=== PATIENT | male | born 1960 | race Caucasian/White ===

== ENCOUNTER 2024-01-22 09:48 | Outpatient (REF) | payer OTHER, SELFPAY | END 2024-01-22 09:49 | disposition home or self-care (01) | LOC: HO.HOSX 09:48 | PROVIDERS: PCP Nurse Practitioner Adult Health; Visit Provider Physician Assistant | DX: M25.561 Pain in right knee (principal); M41.20 Other idiopathic scoliosis, site unspecified | CPT/HCPCS: 72110; 73562; 99202 ==

== ENCOUNTER 2024-01-22 09:48 | Outpatient (AMB) | payer OTHER, SELFPAY ==
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
== END 2024-01-22 10:48 | disposition home or self-care (01) ==
PROVIDERS: PCP Nurse Practitioner Adult Health; Referring Provider Nurse Practitioner Adult Health; Supervising Provider Nurse Practitioner Adult Health; Visit Provider Physician Assistant
DX: M25.561 Pain in right knee (principal); M41.20 Other idiopathic scoliosis, site unspecified
CPT/HCPCS: 99204

== ENCOUNTER → 2024-01-22 10:39 | Outpatient (BNV) | payer OTHER, SELFPAY | PROVIDERS: PCP Nurse Practitioner Adult Health; Visit Provider Radiology Diagnostic Radiology | DX: M17.11 Unilateral primary osteoarthritis, right knee (principal) | CPT/HCPCS: 73562 ==

== ENCOUNTER 2024-02-14 10:07 | Outpatient (AMB) | payer OTHER, SELFPAY ==
--- NOTE | 2024-02-14 10:11 | MHC.OFFVIS ---
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 The patient states that he has been seen by another physician for his left wrist pain. He was told at that time that he might have ?gout?. The patient does not have a antenna specialist. He states that he is due to undergo blood work to further evaluate him for gout versus ?possible Lyme disease?. He has also been seen by ANTHONY Jean from our neurosurgery department here at [facility] for low back pain which radiates into his right leg. Allergies No Known Allergies Allergy (Verified 02/14/24 10:16) Physical Exam Const Other: Well-nourished well-developed very friendly male awake alert and oriented x3 in no acute distress Extrem Other: Right knee examination shows a mild effusion, palpable crepitus with range of motion, pain with range of motion, no instability Results Reviewed Results Reviewed: X-rays of the patient's right knee show joint space narrowing, subchondral sclerosis, calcifications consistent with possible gouty crystals Assessment & Plan Assessment & Plan (1) Gout: Code(s): M10.9 - Gout, unspecified Category: Medical (2) Right knee pain: Code(s): M25.561 - Pain in right knee Category: Medical Plan Mr. Matta presents with right knee pain due to degenerative joint disease as well as possible gouty flare up. I had a lengthy discussion with the patient regarding the treatment options. At this point the patient's knee pain is tolerable to him. I do feel that the majority of the patient's right lower extremity symptoms are from his right knee and not his lumbar spine pathology. I will try to arrange for the patient to have a follow-up appointment with Rheumatology. Once he has that appointment he will follow up with me to further discuss possible total knee replacement surgery. Feel free to call me at any time should questions regarding his orthopedic management arise. Thank you very much for asking me to see this very friendly gentleman. I spent 22 minutes in reviewing the patient's records and imaging studies, seeing the patient and documenting in the medical record. Orders: Referrals Rheumatology Referral M10.9 - Gout, unspecified Coding Level of Care Code New Pt Level 3 (68191) Complex EM visit Add On G2211 Diagnoses Gout M10.9 Right knee pain M25.561
== END 2024-02-14 10:36 | disposition home or self-care (01) ==
PROVIDERS: PCP Nurse Practitioner Adult Health; Visit Provider Orthopaedic Surgery
DX: M17.11 Unilateral primary osteoarthritis, right knee (principal)
CPT/HCPCS: 99203; G2211

== ENCOUNTER → 2024-02-14 10:07 | Outpatient (BNVA) | payer OTHER, SELFPAY | PROVIDERS: PCP Nurse Practitioner Adult Health; Visit Provider Orthopaedic Surgery | DX: M25.561 Pain in right knee (principal); M10.9 Gout, unspecified | CPT/HCPCS: 99202 ==

== ENCOUNTER 2024-02-16 11:00 | Outpatient (AMB) | payer OTHER, SELFPAY ==
--- NOTE | 2024-02-16 11:03 | HO.SPINEOV ---
Intake Visit Reasons: Follow up after Ortho appt Intake Note: Mr. Matta is here to F/u after ortho appointment. Towing Pilot Required: No Allergies No Known Allergies Allergy (Verified 02/16/24 11:29) Assessment & Plan Assessment & Plan (1) Gout: Code(s): M10.9 - Gout, unspecified Category: Medical Plan MR Matta returns today to discuss his visit with Dr. Ontiveros. It looks like from his note that he believes this is likely arthritic as well. The patient has multiple swollen joints in his right leg, now is ankle is also bothering him and is swollen. The knee feels slightly better now and is less swollen. He reports a history of having gout in his left wrist at 1 point years ago. None of this fits with lumbar radiculopathy and I agree with Dr. Ontiveros that he is best suited to see a box turner. Total amount of time spent in this visit was 20 minutes in discussion of symptoms, lumbar MRI imaging and orthopedic results and subsequent plan of care Blake Mata MD,PhD [facility] Coding Level of Care Code Est Pt Level 3 (72870) Diagnoses Gout M10.9
== END 2024-02-16 12:02 | disposition home or self-care (01) ==
PROVIDERS: PCP Nurse Practitioner Adult Health; Visit Provider Physician Assistant
DX: M10.9 Gout, unspecified (principal)
CPT/HCPCS: 99213

== ENCOUNTER → 2024-02-16 11:00 | Outpatient (BNVA) | payer OTHER, SELFPAY | PROVIDERS: PCP Nurse Practitioner Adult Health; Visit Provider Physician Assistant | DX: M10.9 Gout, unspecified (principal) | CPT/HCPCS: 99212 ==

== ENCOUNTER 2024-05-10 10:36 | Outpatient (AMB) | payer OTHER, SELFPAY ==
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
[2024-05-10 10:48] VITALS: BP 112/64; PULSE 73; RESP 18; O2SAT 98; BMI 25.2
== END 2024-05-10 11:32 | disposition home or self-care (01) ==
PROVIDERS: PCP Nurse Practitioner Adult Health; Visit Provider Student in an Organized Health Care Education/Training Program
DX: M11.9 Crystal arthropathy, unspecified (principal)
CPT/HCPCS: 99204; G2211

== ENCOUNTER 2024-05-10 10:36 | Outpatient (REF) | payer OTHER, SELFPAY ==
--- NOTE | ~2024-05-10 | XR_ITS ---
CLINICAL HISTORY: M10.9 - Gout, unspecified 4 view left hand Comparison: None Findings: No evidence of acute fracture. Mild deformity of the 5th metatarsal shaft due to old injury. Small well corticated ossified focus projecting dorsal to the proximal carpus due to old injury +/-intra-articular body. Single scapholunate screw. Small erosion in the articular surface of the radial styloid in the vicinity of the head of the scapholunate screw. Otherwise no evidence of hardware complication. Background of more diffuse , mild irregularity of the distal rim of the radius which may be degenerative in nature or less likely due to erosions in the context of gout. Small calcifications projecting over the ulnocarpal joint, anterior to the proximal carpus, and in the vicinity of the 1st IP joint/1st metacarpal head due to calcium deposition disease (such as in the context of gout). Severe partial degenerative narrowing of the 3rd metacarpophalangeal joint with associated mild 3rd metacarpophalangeal subluxation. Bvru-me-iwjwcpkr osteoarthritis is seen at some of the other carpal and hand levels. IMPRESSION: 1. Single scapholunate screw. Small erosion in the articular surface of the radial styloid in the vicinity of the head of the scapholunate screw. Otherwise no evidence of hardware complication. Background of more diffuse , mild irregularity of the distal rim of the radius which may be degenerative in nature or less likely due to erosions in the context of gout. 3. Small calcifications projecting over the ulnocarpal joint, anterior to the proximal carpus, and in the vicinity of the 1st IP joint/1st metacarpal head due to calcium deposition disease (such as in the context of gout). 3. Severe partial degenerative narrowing of the 3rd metacarpophalangeal joint with associated mild 3rd metacarpophalangeal subluxation. This document has been electronically signed by: Kelsy South MD on 05/13/2024 13:13:04
--- NOTE | ~2024-05-10 | XR_ITS ---
CLINICAL HISTORY: M10.9 - Gout, unspecified 4 view right hand Comparison: None Findings: No acute fractures or dislocations. Small well corticated ossified focus projecting distal to the ulnar styloid likely due to old injury. Mild deformity of the 5th metacarpal shaft likely due to old injury. Small calcifications at level of the distal radioulnar, ulnocarpal, lunotriquetral, radiocarpal, and radial aspect of 3rd metacarpophalangeal joints due to calcium deposition disease (such as in the context of gout) +/-intra-articular bodies. No evidence of erosion. Mild degenerative changes at level of the 1st IP and some of the PIP/DIP joints. No radiopaque foreign body. IMPRESSION: Small calcifications at level of the distal radioulnar, ulnocarpal, lunotriquetral, radiocarpal, and radial aspect of 3rd metacarpophalangeal joints due to calcium deposition disease (such as in the context of gout) +/-intra-articular bodies. No evidence of erosion. This document has been electronically signed by: Kelsy South MD on 05/13/2024 13:12:16
--- NOTE | ~2024-05-10 | XR_ITS ---
CLINICAL HISTORY: M10.9 - Gout, unspecified 3 view right ankle Comparison: None Findings: Bilateral ankle and foot radiographs would be reported concurrently. Normal alignment without acute fracture. No radiopaque foreign body. Right: Small calcifications in the vicinity of the 1st metatarsal head with a questionable small erosion of the lateral aspect of the 1st metatarsal head. Mild calcifications distal to the medial malleolus may be dystrophic in nature. Mild distal Achilles calcifications may be dystrophic in nature or due to calcium deposition disease. Left: Mild spurring +/-heterotopic ossification at/in the vicinity of the medial and lateral malleoli likely due to old injury. Small calcifications in the vicinity of the 1st metatarsal head with a small medial metatarsal punched-out erosion primarily concerning for gout. Small calcifications at/ in the vicinity of the 2nd metatarsophalangeal joint as well as small distal Achilles calcifications may be dystrophic in nature or due to calcium deposition disease. IMPRESSION: Right: Small calcifications in the vicinity of the 1st metatarsal head with a questionable small erosion of the lateral aspect of the 1st metatarsal head primarily concerning for gout. Left: Small calcifications in the vicinity of the 1st metatarsal head with a small medial metatarsal punched-out erosion primarily concerning for gout. Small calcifications at/in the vicinity of the left 2nd metatarsophalangeal joint as well as bilateral small distal Achilles calcifications may be dystrophic in nature or due to calcium deposition disease. This document has been electronically signed by: Kelsy South MD on 05/13/2024 12:58:59
--- NOTE | ~2024-05-10 | XR_ITS ---
CLINICAL HISTORY: M10.9 - Gout, unspecified 3 view left foot Comparison: None Findings: Bilateral ankle and foot radiographs would be reported concurrently. Normal alignment without acute fracture. No radiopaque foreign body. Right: Small calcifications in the vicinity of the 1st metatarsal head with a questionable small erosion of the lateral aspect of the 1st metatarsal head. Mild calcifications distal to the medial malleolus may be dystrophic in nature. Mild distal Achilles calcifications may be dystrophic in nature or due to calcium deposition disease. Left: Mild spurring +/-heterotopic ossification at/in the vicinity of the medial and lateral malleoli likely due to old injury. Small calcifications in the vicinity of the 1st metatarsal head with a small medial metatarsal punched-out erosion primarily concerning for gout. Small calcifications at/ in the vicinity of the 2nd metatarsophalangeal joint as well as small distal Achilles calcifications may be dystrophic in nature or due to calcium deposition disease. IMPRESSION: Right: Small calcifications in the vicinity of the 1st metatarsal head with a questionable small erosion of the lateral aspect of the 1st metatarsal head primarily concerning for gout. Left: Small calcifications in the vicinity of the 1st metatarsal head with a small medial metatarsal punched-out erosion primarily concerning for gout. Small calcifications at/in the vicinity of the left 2nd metatarsophalangeal joint as well as bilateral small distal Achilles calcifications may be dystrophic in nature or due to calcium deposition disease. This document has been electronically signed by: Kelsy South MD on 05/13/2024 13:00:59
--- NOTE | ~2024-05-10 | XR_ITS ---
CLINICAL HISTORY: M10.9 - Gout, unspecified 3 view right foot Comparison: None Findings: Bilateral ankle and foot radiographs would be reported concurrently. Normal alignment without acute fracture. No radiopaque foreign body. Right: Small calcifications in the vicinity of the 1st metatarsal head with a questionable small erosion of the lateral aspect of the 1st metatarsal head. Mild calcifications distal to the medial malleolus may be dystrophic in nature. Mild distal Achilles calcifications may be dystrophic in nature or due to calcium deposition disease. Left: Mild spurring +/-heterotopic ossification at/in the vicinity of the medial and lateral malleoli likely due to old injury. Small calcifications in the vicinity of the 1st metatarsal head with a small medial metatarsal punched-out erosion primarily concerning for gout. Small calcifications at/ in the vicinity of the 2nd metatarsophalangeal joint as well as small distal Achilles calcifications may be dystrophic in nature or due to calcium deposition disease. IMPRESSION: Right: Small calcifications in the vicinity of the 1st metatarsal head with a questionable small erosion of the lateral aspect of the 1st metatarsal head primarily concerning for gout. Left: Small calcifications in the vicinity of the 1st metatarsal head with a small medial metatarsal punched-out erosion primarily concerning for gout. Small calcifications at/in the vicinity of the left 2nd metatarsophalangeal joint as well as bilateral small distal Achilles calcifications may be dystrophic in nature or due to calcium deposition disease. This document has been electronically signed by: Kelsy South MD on 05/13/2024 12:59:27
--- NOTE | ~2024-05-10 | XR_ITS ---
CLINICAL HISTORY: M10.9 - Gout, unspecified 3 view left ankle Comparison: None Findings: Bilateral ankle and foot radiographs would be reported concurrently. Normal alignment without acute fracture. No radiopaque foreign body. Right: Small calcifications in the vicinity of the 1st metatarsal head with a questionable small erosion of the lateral aspect of the 1st metatarsal head. Mild calcifications distal to the medial malleolus may be dystrophic in nature. Mild distal Achilles calcifications may be dystrophic in nature or due to calcium deposition disease. Left: Mild spurring +/-heterotopic ossification at/in the vicinity of the medial and lateral malleoli likely due to old injury. Small calcifications in the vicinity of the 1st metatarsal head with a small medial metatarsal punched-out erosion primarily concerning for gout. Small calcifications at/ in the vicinity of the 2nd metatarsophalangeal joint as well as small distal Achilles calcifications may be dystrophic in nature or due to calcium deposition disease. IMPRESSION: Right: Small calcifications in the vicinity of the 1st metatarsal head with a questionable small erosion of the lateral aspect of the 1st metatarsal head primarily concerning for gout. Left: Small calcifications in the vicinity of the 1st metatarsal head with a small medial metatarsal punched-out erosion primarily concerning for gout. Small calcifications at/in the vicinity of the left 2nd metatarsophalangeal joint as well as bilateral small distal Achilles calcifications may be dystrophic in nature or due to calcium deposition disease. This document has been electronically signed by: Kelsy South MD on 05/13/2024 12:59:56
[2024-05-10 12:37] LABS: MANUAL DIFF FLAG NO
[2024-05-10 12:44] LABS: Basophils Absolute Auto 0.1 X10*3/uL (0.0-0.2); Basophils Percent Auto 0.4 % (0-2); Eosinophils Absolute Auto 0.1 X10*3/uL (0.0-0.4); Eosinophils Percent Auto 0.5 % (0-4); Hemoglobin 12.8 g/dl (14.0-18.0); Imm Gran Abs Auto 0.04 X10*3/uL (0.00-0.03); Imm Gran Pct Auto 0.3 % (0.0-0.4); Lymphocytes Absolute Auto 3.7 X10*3/uL (1.2-4.9); Lymphocytes Percent Auto 29.9 % (20-40); Mean Corpuscular HGB Conc 33.7 g/dl (31.0-36.0); Mean Corpuscular Hemoglobin 29.4 pg (27.0-33.0); Mean Corpuscular Volume 87.4 fL (80.0-98.0); Mean Platelet Volume 8.4 fL (9.4-12.4); Monocytes Absolute Auto 0.6 X10*3/uL (0.1-1.2); Monocytes Percent Auto 4.7 % (2-11); Neutrophils Absolute Auto 7.9 x10*3/uL (2.0-8.3); Neutrophils Percent Auto 64.2 % (45-73); Platelet Count 453 X10*3/uL (160-400); Red Blood Count 4.35 X10*6/uL (4.60-5.80); Red Cell Distribution Width 13.7 % (11.0-16.0); White Blood Count 12.2 X10*3/uL (4.8-10.8)
[2024-05-10 13:22] LABS: Erythrocyte Sedimentation Rate 12 MM/HR (0-15)
[2024-05-10 13:33] LABS: Alanine Aminotransferase 19 U/L (0-40); Albumin Level 4.4 g/dL (3.5-5.0); Alkaline Phosphatase 87 U/L (39-117); Anion Gap 10 (12-20); Aspartate Amino Transferase 20 U/L (5-37); Bilirubin Total 0.3 mg/dL (0.0-1.0); Blood Urea Nitrogen 16 mg/dL (9-16); C Reactive Protein 1.37 mg/dL (< or = 0.50); Calcium 9.2 mg/dL (8.4-10.2); Carbon Dioxide 27 mmol/L (22-29); Chloride 106 mmol/L (96-108); Estimated Glomerular Filt Rate > 60; Glucose Random 90 mg/dL (60-115); Iron 66 mcg/dL (45-160); Magnesium 2.3 mg/dL (1.6-2.6); Percent Iron Saturation 22 % (15-50); Potassium 4.5 mmol/L (3.3-5.1); Sodium 138 mmol/L (135-145); Total Iron Binding Capacity 299 mcg/dL (228-428); Total Protein 7.8 g/dL (6.5-8.0); Unsaturated Iron Binding 233 ug/dL; Uric Acid 4.5 mg/dL (3.4-7.0)
[2024-05-10 13:40] LABS: Ferritin 169 ng/mL (20-250); Free T4 (Free Thyroxine) 0.95 ng/dL (0.71-1.85); Thyroid Stimulating Hormone 1.34 uIU/mL (0.32-4.0)
[2024-05-10 14:01] LABS: Rheumatoid Factor < 13.0 IU/mL (<15.0)
[2024-05-13 11:49] LABS: IgA 344 mg/dL (70-320); IgG 1090 mg/dL (600-1540); IgM 92 mg/dL (50-300)
[2024-05-13 13:24] LABS: Prot Elec - Albumin 4.1 g/dL (3.8-4.8); Prot Elec - Alpha1 0.3 g/dL (0.2-0.3); Prot Elec - Alpha2 0.9 g/dL (0.5-0.9); Prot Elec - Beta 1 0.5 g/dL (0.4-0.6); Prot Elec - Beta 2 0.5 g/dL (0.2-0.5); Prot Elec - Gamma 0.9 g/dL (0.8-1.7); Prot Elec - Total Protein 7.2 g/dL (6.1-8.1)
[2024-05-13 18:28] LABS: Lyme Abs Screen <0.90 index
[2024-05-15 13:24] LABS: Cyclic Citrullinated Peptide <16 UNITS
== END 2024-05-10 10:37 | disposition home or self-care (01) ==
LOC: HO.XRAY 10:36
PROVIDERS: PCP Nurse Practitioner Adult Health; Visit Provider Student in an Organized Health Care Education/Training Program
DX: M10.9 Gout, unspecified (principal); M11.9 Crystal arthropathy, unspecified
CPT/HCPCS: 36415; 73110; 73130; 73610; 73630; 80053; 82728; 82784; 83540; 83735; 84165; 84439; 84443; 84550; 85025; 85652; 86140; 86200; 86334; 86431; 86617; 86618; 99202

== ENCOUNTER 2024-05-28 15:53 | Outpatient (AMB) | payer BC, SELFPAY ==
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
[2024-05-28 15:58] VITALS: BP 112/60; PULSE 68; RESP 18; O2SAT 98; BMI 25.2
== END 2024-05-28 16:20 | disposition home or self-care (01) ==
LOC: HO.RHE 15:53
PROVIDERS: PCP Nurse Practitioner Adult Health; Visit Provider Student in an Organized Health Care Education/Training Program
DX: M11.9 Crystal arthropathy, unspecified (principal); M11.20 Other chondrocalcinosis, unspecified site
CPT/HCPCS: 99214

== ENCOUNTER → 2024-05-28 15:53 | Outpatient (BNVA) | payer BC, SELFPAY | PROVIDERS: PCP Nurse Practitioner Adult Health; Visit Provider Student in an Organized Health Care Education/Training Program ==

== ENCOUNTER 2024-11-01 08:16 | Outpatient (AMB) | payer BC, SELFPAY ==
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
[2024-11-01 08:27] VITALS: BP 115/70; PULSE 57; RESP 18; O2SAT 98; BMI 25.3
== END 2024-11-01 09:00 | disposition home or self-care (01) ==
LOC: HO.RHE 08:17
PROVIDERS: PCP Nurse Practitioner Adult Health; Visit Provider Student in an Organized Health Care Education/Training Program
DX: M11.9 Crystal arthropathy, unspecified (principal); M11.20 Other chondrocalcinosis, unspecified site
CPT/HCPCS: 99214

== ENCOUNTER 2025-04-22 12:04 | Outpatient (REF) | payer BC, SELFPAY ==
[2025-04-22 12:17] LABS: MANUAL DIFF FLAG NO
[2025-04-22 12:43] LABS: Hematocrit 37.4 % (42.0-52.0); Hemoglobin 12.9 g/dl (14.0-18.0); Imm Gran Abs Auto 0.04 X10*3/uL (0.00-0.03); Imm Gran Pct Auto 0.3 % (0.0-0.4); Lymphocytes Absolute Auto 4.0 X10*3/uL (1.2-4.9); Mean Corpuscular HGB Conc 34.5 g/dl (31.0-36.0); Mean Corpuscular Hemoglobin 29.3 pg (27.0-33.0); Mean Corpuscular Volume 84.8 fL (80.0-98.0); NRBC Abs Auto 0.000 X10*3/uL (0.0-0.012); NRBC Pct Auto 0.0 /100WBC (0.0-0.2); Platelet Count 384 X10*3/uL (160-400); Red Blood Count 4.41 X10*6/uL (4.60-5.80); White Blood Count 12.6 X10*3/uL (4.8-10.8)
[2025-04-22 13:13] LABS: Alanine Aminotransferase 23 U/L (0-40); Albumin Level 4.7 g/dL (3.5-5.0); Alkaline Phosphatase 80 U/L (39-117); Anion Gap 12 (12-20); Aspartate Amino Transferase 22 U/L (5-37); Blood Urea Nitrogen 18 mg/dL (9-16); Calcium 9.4 mg/dL (8.4-10.2); Carbon Dioxide 22 mmol/L (22-29); Chloride 106 mmol/L (96-108); Estimated Glomerular Filt Rate > 60; Potassium 4.4 mmol/L (3.3-5.1); Sodium 136 mmol/L (135-145); Total Protein 7.6 g/dL (6.5-8.0)
--- OUTSIDE RECORDS SUMMARY | 2025-04-22 16:06 | XMS_ITS | Encounter Summary ---
Author Organization [facility] Address [address] [place] [id number] Phone Care Team Providers Care Public Administration Professor Name Role Phone Imelda Mccauley NP Primary Care Provider [phone] Sherita Fernandez Unavailable [phone] Encounter Details Date Type Department Care Team (Late st Contact Info) Description 03/08/2024 Procedure Pass [facility], Ct Scan - [address] [address] Social History Tobacco Use Types Packs/Day Years Used Date Smoking Tobacco: Every Day Cigarettes 1 51 Started: 1974 Smokeless Tobacco: Never Alcohol Use Standard Drinks/Week Comments Not Currently 0 (1 standard drink = 0.6 oz pur e alcohol) Child or Family Care Answer Date Record ed Do you have problems with on e of the following making it difficult for you to work, study, or receive health care? I choose not to answer 03/08/2024 Education Answer Date Recorded Are you interested in help w ith more adult education (for example, completing high school, GED, job training, learning the Lebanese language, technical skills, or developing parenting skills)? I choose not to answer 03/08/2024 Are you concerned about learning? Not on file 03/08/2024 No 03/08/2024 Yes 03/08/2024 Food Answer Date Recorded Within the past 6 months we worried whether our food would run out before we got money to buy more. I choose not to answer 03/08/2024 Within the past 6 months the food we bought just didn't last and we didn't have enough money to get more. Sometimes True 03/08/2024 Residential Stability Answer Date Recor ded What is your housing situation today? I choose n ot to answer 03/08/2024 How many times have you move d in the past 12 months? I choose not to answer 03/08/2024 Paying for Meds Answer Date Recorded Do you have trouble paying for medicines? I lisbet se not to answer 03/08/2024 Paying Utility Bills Answer Date Record ed Do you have trouble paying y our heating or electricity bill? I choose not to answer 03/08/2024 Transportation Answer Date Recorded Has the lack of transportati on kept you from medical appointments or from getting medications? I choose not to answer 03/08/2024 Digital Access Answer Date Recorded Yes 03/08/2024 No 03/08/2024 Do you have reliable internet access at home? No 03/08/2024 Do you have a device (e.g., phone, tablet, computer) with a working camera? No 03/08/2024 Sex and Gender Information Value Date Recorded Sex Assigned at Not on file Legal Sex Male 9:47 PM EDT Gender Identity Not on file Sexual Orientation Not on file documented as of this encounter Plan of Treatment Not on file documented as of this encounter Visit Diagnoses Not on filedocumented in this encounter Care Teams Public Administration Professor Relationship Specialty Start Date End Date Imelda Mccauley NP [address] [place] [address] [address] [place] [address] [email or web address] PCP - General 04/27/17 Sherita Fernandez MBBS [address] [place] [id number] Primary Oncologist Medical Oncology 05/01/24 documented as of this encounter Additional Source Comments The information contained in this document represents components of the legal health record. It is not the complete legal health record.[facility]
--- OUTSIDE RECORDS SUMMARY | 2025-04-22 16:06 | XMS_ITS | Encounter Summary ---
Author Organization [facility] Address [address] [place] [phone] Phone Care Team Providers Care Equal Opportunity Assistant Name Role Phone Imelda Mccauley NP Primary Care Provider [phone] Sherita Fernandez Unavailable Encounter Details Date Type Department Care Team (Late st Contact Info) Description 05/17/2024 Procedure Pass [facility] Admitting Dept Virtual Department [address] [place] [address] Social History Tobacco Use Types Packs/Day Years Used Date Smoking Tobacco: Every Day Cigarettes 1 51 Started: 1974 Smokeless Tobacco: Never Alcohol Use Standard Drinks/Week Comments Not Currently 0 (1 standard drink = 0.6 oz pur e alcohol) none for 2 years Child or Family Care Answer Date Record ed Do you have problems with on e of the following making it difficult for you to work, study, or receive health care? I choose not to answer 03/08/2024 Education Answer Date Recorded Are you interested in help w ith more adult education (for example, completing high school, GED, job training, learning the Congolese language, technical skills, or developing parenting skills)? [...] computer) with a working camera? No 03/08/2024 Intimate Partner Violence Answer Date R ecorded Are you denied basic needs s uch as food, clothing, or medical care? No 05/17/2024 In the past 12 months have y ou been in a relationship with a person who hurts, threatens, or tries to control you? No 05/17/2024 Are you denied basic needs s uch as food, clothing, or medical care? No 05/17/2024 In the past 12 months have y ou been in a relationship with a person who hurts, threatens, or tries to control you? No 05/17/2024 Sex and Gender Information Value Date Recorded Sex Assigned at Not on file Legal Sex Male 9:47 PM EDT Gender Identity Not on file Sexual Orientation Not on file documented as of this encounter Plan of Treatment Not on file documented as of this encounter Visit Diagnoses Not on filedocumented in this encounter Care Teams Equal Opportunity Assistant Relationship Specialty Start Date End Date Imelda Mccauley NP [address] [facility] [address] [place] [address] PCP - General 04/27/17 Sherita Fernandez MBBS [address] [place] [id number] [email or web address] Primary Oncologist Medical Oncology 05/01/24 documented as of this encounter Additional Source Comments The information contained in this document represents components of the legal health record. It is not the complete legal health record.[facility]
--- OUTSIDE RECORDS SUMMARY | 2025-04-22 16:06 | XMS_ITS | Clinical Summary ---
Author Organization [facility] Address [address] [place] [address] [place] [address] Phone Care Team Providers Care Director Of Global Talent Name Role Phone Imelda Mccauley NP Primary Care Provider [phone] Sherita Fernandez Unavailable Allergies Active Allergy Reactions Criticality Noted Date Comments Indomethacin GI Upset 12/28/2023 Medications colchicine (COLCRYS) 0.6 mg tablet Take 1 tablet by mouth 2 (two) times a day. 11/01/2024 Active Active Problems Problem Noted Date Diagnosed Date Pseudogout 05/31/2024 Abnormal CBC 05/10/2024 Normocytic anemia 05/10/2024 Tobacco use disorder 03/08/2024 Assessment & Plan (03/08/2024 5:34 PM EST): 5 minutes of this 40 minute appointment was spent discussing smoking cessation. Patient reports low motivation at this time. Patient declines smoking cessation resources at this time. Encounter for general adult medical examination with abnormal findings 03/08/2024 Assessment & Plan (03/08/2024 5:38 PM EST): Generally well male, with health issues as discussed below. Patient due for Tdap, Flu, COVID, PCV, and Shingrix vaccines; Tdap given in office. Patient declines Flu and COVID following discussion of risk/benefits. Would encourage him to consider PCV and Shingrix and f/u for immunizations. Patient is overdue for colonoscopy, referral already placed and gave him number to set up appointment with belt tender. Due for fasting lab work, orders placed. Would also recommend CT lung cancer screen, patient in agreement with plan. Left inguinal hernia 03/08/2024 Assessment & Plan (11/22/2024 10:41 AM EDT): This is a 64-year-old gentleman who has a moderate size fat-containing left inguinal hernia that was documented by CT scan abdomen pelvis in May 2024. This left inguinal hernia is easily palpable on exam and is reducible. This is nontender. This is not causing him much discomfort. Patient reports he is very busy with work currently and may want to have this left inguinal hernia repaired. I discussed open repair and laparoscopic inguinal hernia repair with mesh in detail with the patient including risk benefits and alternatives. He believes he would like to undergo a laparoscopic repair. He is not sure when he would like to schedule this. He will call us back when he would like to schedule this procedure. The patient does not have any significant medical problems that I believe he would need medical clearance for. We will schedule this or sometime when the patient calls back to schedule the laparoscopic repair of the left inguinal hernia with mesh. Assessment & Plan (03/08/2024 5:34 PM EST): Left inguinal hernia. We discussed hernia pathophysiology and treatment options including watchful waiting and surgical repair. No red flags on history or exam indication incarceration of hernia. Patient would prefer to monitor for now. Reviewed red flags that would prompt emergent evaluation. Patien in agreement with plan. Lumbar radiculopathy 03/08/2024 Assessment & Plan (03/08/2024 5:36 PM EST): Some right sided thigh tightness, which could certainly be related to lumbar radiculopathy. He was seen by neurosurgery who did not feel surgery was necessary. Continue regular stretching regimen. Thrombocytosis 03/08/2024 Assessment & Plan (03/08/2024 5:33 PM EST): Referral has been place to hematology for some blood count changes. I do not see evidence of polycythemia, but he has had an intermittent thrombocytosis and neutrophilia which warrants investigation. F/u with Dr. Fernandez as scheduled. Leucocytosis 03/08/2024 Assessment & Plan (12/15/2024 1:17 PM EDT): 64-year-old male, chronic smoker , now quit, with history of recurrent joint pain and swelling affecting the right knee, right foot. Also has prior history of back pain. He has been diagnosed with CPPD. He is undergoing further evaluation by his GI team ( see HPI ) . Thrombocytosis has resolved. Mild leukocytosis resolved. There is no indication for continued follow up in the hematology clinic; he is stable with a mild anemia secondary to chronic illness. He should follow-up DANYELL with GI to discuss further his questions regarding GI evaluation. Assessment & Plan (07/09/2024 8:36 AM EDT): 63-year-old male, chronic smoker with history of recurrent joint pain and swelling affecting the right knee, right foot. Also has prior history of back pain. He has been diagnosed with CPPD. He is undergoing further evaluation by his GI team ( see HPI ) . Thrombocytosis has resolved. Mild leukocytosis persists. He is a chronic smoker of at least 1 pack/day. His smoking and CPPD can both contribute to leukocytosis, mild anemia of inflammation. However, it is important for him to follow-up DANYELL with GI and he will be contacting them this week. He is aware of the need for smoking cessation. He will undergo laboratory testing today and will follow-up in hematology clinic in approximately 4 months with labs prior. All questions were answered. Assessment & Plan (05/10/2024 8:57 AM EST): 63-year-old male, chronic smoker with history of recurrent joint pain and swelling affecting the right knee, right foot. Also has prior history of back pain. He will be seeing rheumatology services as a new patient today. Of note he has a 1 year history of left lower jaw pain and has been found to have a tooth infection in that area. He is currently arranging for tooth extraction. He is a chronic smoker of at least 1 pack/day. These 3 conditions can all contribute to leukocytosis, mild anemia of inflammation, and a reactive intermittent thrombocytosis. I have reviewed the pathophysiology of this condition with the patient. I agree with tooth extraction and antibiotics if clinically indicated. He will be contacting his dentist and primary care provider regarding this. He will be seen by rheumatology services this a.m. He is aware of the need for smoking cessation. He will undergo laboratory testing today and will follow-up in hematology clinic in approximately 2 months with a CBC prior. All questions were answered. Assessment & Plan (03/08/2024 5:33 PM EST): As above, may be related to steroid use. F/u with hematology as planned. Immunizations Immunization Administration Dates Next Due COVID-19 (Pre-02/13) Pfizer Vaccine, mRNA, PF ,10/14/2020 Td (adult) 5 Lf Tetanus Toxoid, PF, Adsorbed Tdap 03/08/2024 Family History Medical History Relation Comments Pancreatic cancer Brother Pancreatic cancer Father Colon cancer Mother Multiple sclerosis Sister No Known Problems Son Relation Status Comments Brother Father Maternal Grandfather Maternal Grandmother Mother Paternal Grandfather Paternal Grandmother Sister Son Alive Social History Tobacco Use Types Packs/Day Years Used Date Smoking Tobacco: Former Cigarettes 1 51 S tarted: 1974 Passive Smoke Exposure: Current Smokeless Tobacco: Never Tobacco Cessation:Counseling Given: Not Answered Passive Exposure Comments:quiet 2 weeks ago Alcohol Use Standard Drinks/Week Comments Not Currently [...] high school, GED, job training, learning the [place] language, technical skills, or developing parenting skills)? 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 file Not on file Not on file Last Filed Vital Signs Vital Sign Reading Time Taken Comments Blood Pressure 101/64 12/13/2024 1:02 PM EDT Pulse 52 12/13/2024 1:02 PM EDT Temperature 36.8 C (98.2 F) 12/13/2024 1:02 PM EDT Respiratory Rate 17 05/17/2024 11:3 4 AM EST Oxygen Saturation 96% 12/13/2024 1:0 2 PM EDT Inhaled Oxygen Concentration - - Weight 81.6 kg (179 lb 12.8 oz) 025 1:02 PM EDT with shoes Height 172.7 cm (5' 7.99 ) 12/13/2024 1 :02 PM EDT Body Mass Index 27.34 12/13/2024 1:02 PM EDT Plan of Treatment Health Maintenance Due Date Last Done Comments DEPRESSION SCREENING 1972 SMOKING Hx and SMOKELESS TOBACCO SCREENING 1973 HEPATITIS C SCREENING 1978 HIV ONE-TIME SCREENING (18-6 5 YEARS) 1978 COLOGUARD 2005 FIT TEST 2005 FOBT 2005 SIGMOIDOSCOPY 2005 VIRTUAL COLONOSCOPY 2005 PNEUMOCOCCAL VACCINES (50+ years) (1 of 1 - PCV) 2010 ZOSTER VACCINES (1 of 2) 2010 LIPID PANEL 08/14/2014 08/14/2009, 08/14/2009, 08/14/2009 INFLUENZA VACCINE (#1) 2024 SCREENING FOR DIABETES 12/14/2027 12/13/2024 Adult Td,Tdap Booster 03/08/2034 03/08/2024 , 08/12/2009 COLONOSCOPY 05/17/2034 05/17/2024, 01/29/2015 COLORECTAL CANCER SCREENING 05/17/2034 RSV VACCINE (1 - 1-dose 75+ series) 10/21/2035 HEPATITIS A VACCINES Aged Out No long er eligible based on patient's age to complete this topic HIB VACCINES Aged Out No longer eligi ble based on patient's age to complete this topic MENINGOCOCCAL VACCINES (ACWY) Aged Out No longer eligible based on patient's age to complete this topic MENINGOCOCCAL VACCINES (B) Aged Out N o longer eligible based on patient's age to complete this topic Medical Devices Implanted Type Area Vpk Teacher Device Identifier Shelf Expiration Date Model / Serial / Lot Hadrware Face Hardware Left: Wrist Procedures Procedure Name Priority Date/Time Associated Diagnosis Comments ENDOSCOPY, COLON 05/17/2024 10:5 2 AM EST OUTSIDE HDL Routine 08/14/2009 from Last 3 Months or Most Recently Relevant to Health Maintenance Results * ENDOSCOPY, COLON (05/17/2024 10:52 AM EST) Narrative Transcriptions Harrison Louis MD - 05/17/2024 10:52 AM EST [facility] Patient Name: Sheldon Matta Attending MD:: HARRISON LOUIS MD, , Procedure Date: 05/17/2024 10:52 AM Date of : 1960 Age: 63 Admit Type: Outpatient Gender: Male Room: [place] [address] Referring MD: IMELDA MCCAULEY MD Exam Type: Colonoscopy Indications: High risk colon cancer surveillance: Personalhistory of colonic polyps Medications: Monitored Anesthesia Care Procedure: Informed consent was obtained from the patientafter discussion of the indications, limitations, alternatives, benefits, and risks of the procedure. Risks specifically discussed include but are not limited to medication reactions, missed lesions, bleeding, perforation, or the need for emergent surgery. Throughout the procedure, the patient's blood pressure, pulse, end-tidal CO2, and oxygensaturations were monitored continuously. The Olympus adult variable colonoscope CF-NU335V #5 was introduced through the anus with the intentionof advancing to the cecum. The scope was advanced tothe transverse colon before the procedure was aborted. Medications were given. The colonoscopy wasperformed with difficulty due to restricted mobility of the colon. The patient tolerated the procedure well.The quality of the bowel preparation was excellent. Complications: No immediate complications. Estimated blood loss: Minimal. Findings: The perianal and digital rectal examinations were normal. Could not advance scope past transverse colon dueto compression of the colon and significant looping, tried abdominal pressure and laying patientsupine. A 4 mm polyp was found in the sigmoid colon. Thepolyp was sessile. The polyp was removed with a coldsnare. Resection and retrieval were complete. Scattered small-mouthed diverticula were found inthe sigmoid colon. The exam was otherwise normal throughout theexamined colon. Impression: - One 4 mm polyp in the sigmoid colon, removed witha cold snare. Resected and retrieved. - Mild diverticulosis in the sigmoid colon. Recommendation: - Discharge patient to home. - Await pathology results. - Perform CT scan (computed tomography) of the abdomen/pelvis with contrast at appointment to be scheduled. - Obtain cologuard HARRISON LOUIS MD, 05/17/2024 11:24:20 AM This report has been signed electronically. Number of Addenda: 0 Note Initiated On: 05/17/2024 10:52 AM Procedure Code(s): --- Professional --- 03901, 52, Colonoscopy, flexible; with removal of tumor(s), polyp(s),or other lesion(s) by snare technique --- Technical --- 67282, 52, Colonoscopy, flexible; with removal of tumor(s), polyp(s),or other lesion(s) by snare technique Diagnosis Code(s): --- Professional --- Z86.010, Personal history of colonic polyps D12.5, Benign neoplasm of sigmoid colon K57.30, Diverticulosis of large intestine without perforation or abscess without bleeding --- Technical --- Z86.010, Personal history of colonic polyps D12.5, Benign neoplasm of sigmoid colon K57.30, Diverticulosis of large intestine without perforation or abscess without bleeding CPT copyright 2021 [employer]. All rights reserved. The codes documented in this report are preliminary and upon inpatient coder reviewmay be revised to meet current compliance requirements. Procedure Date: 05/17/2024 10:52:[address] [place] [address] Imelda Mccauley NP GI PROCEDURE ORDERABLES Fi nal Result * Outside HDL (08/14/2009) HDL - External 58 40 - 80 mg/dL us Historical Provider LAB BLOOD ORDERABLES Megan l Result from Last 3 Months or Most Recently Relevant to Health Maintenance Insurance BLUE CROSS OUT OF STATE PPO BLUE CROSS OUT OF STATE PPO BLUE CROSS OUT OF STATE PPO BLUE CROSS OUT OF STATE PPO BLUE CROSS OUT OF STATE PPO M[place]CROFT CROSS OUT OF STATE PPO Care Teams Director Of Global Talent Relationship Specialty Start Date End Date Imelda Mccauley NP [address] [place] [address] [address] [place] [address] [email or web address] PCP - General 04/27/17 Sherita Fernandez MBBS [address] [place] [address] [email or web address] Primary Oncologist Medical Oncology 05/01/24 Additional Source Comments The information contained in this document represents components of the legal health record. It is not the complete legal health record.[facility]
--- OUTSIDE RECORDS SUMMARY | 2025-04-22 16:06 | XMS_ITS | Encounter Summary ---
Author Organization [facility] Address [address] [place] [address] Phone Care Team Providers Care Supervisor Pit And Auxiliaries Name Role Phone Imelda Mccauley MACHINING ASSOCIATE Primary Care Provider [phone] Sherita Fernandez Unavailable [phone] Encounter Details Date Type Department Care Team (Latest Contact Info) Description 09/20/2024 Transcribe Orders [facility] [place] [address] [id number] Caron Cowart NP [address] [place] [address] Normocytic anemia (Primary Dx); Other specified abdominal hernia without obstruction or gangrene Social History Tobacco Use Types Packs/Day Years [...] high school, GED, job training, learning the [place] language, technical skills, or developing parenting skills)? [...] on file documented as of this encounter Results * Calprotectin, stool (10/04/2024 4:00 PM EDT) STOOL CALPROTECTIN 77 mcg/g [facility] [place] Comment: (NOTE) Reference Range: <50 Normal 50-120 Borderline >120 Elevated Calprotectin in Crohn's disease and ulcerative colitis can be five to several thousand times above the reference population (50 mcg/g or less). Levels are usually 50 mcg/g or less in healthy patients and with irritable bowel syndrome. Repeat testing in 4-6 weeks is suggested for borderline values. Stool (Stool) 10/04/2024 4:0 0 PM EDT 10/04/2024 4:37 PM EDT Caron Cowart NP LAB BODY FLUIDS AND STOOL ORDERABLES Final Result [employer]/[facility] [place] [address] [place] [address], [facility] [phone] * (ABNORMAL) C-Reactive Protein (09/20/2024 2:58 PM EDT) C REACTIVE PROTEIN 4.6(H) 0.0 - 4.0 mg/L [facility] Blood 09/20/2024 2:58 PM EDT 09/20/2024 3:15 PM EDT Caron Cowart NP LAB BLOOD BKR O RDERABLES Final Result Performing Organization Address City/[facility]/ZIP Co de Phone Number [address] [address] * Comprehensive metabolic panel (09/20/2024 2:58 PM EDT) SODIUM 135 133 - 146 mmol/L [facility] POTASSIUM 4.4 3.3 - 5.1 mmol/L [facility] CHLORIDE 100 96 - 108 mmol/L [facility] CO2 25 21 - 35 mmol/L [facility] BUN 15 6 - 19 mg/dL [facility] CREATININE 0.80 0.5 - 1.5 mg/dL [facility] GLUCOSE 79 70 - 99 mg/dL [facility] ALBUMIN 4.3 3.9 - 4.8 g/dL [facility] TOTAL PROTEIN 7.3 6.5 - 8.0 g/dL [facility] CALCIUM 9.5 8.4 - 10.3 mg/dL [facility] ALKALINE PHOSPHATASE 96 39 - 117 U/L [facility] TOTAL BILIRUBIN 0.4 0.0 - 1.2 mg/dL [facility] AST 28 0 - 37 U/L [facility] ALT 15 0 - 40 U/L [facility] GLOBULIN 3.0 1 - 4.8 g/dL [facility] EGFR 99 >59 mL/min/1.7 3m2 [facility] Comment:Estimated glomerular filtration rate calculated using the CKD-EPI refit equation. ANION GAP 14 10 - 20 mmol/L [facility] Blood 09/20/2024 2:58 PM EDT 09/20/2024 3:15 PM EDT us Caron Cowart MACHINING ASSOCIATE LAB BLOOD BKR O RDERABLES Final Result Performing Organization Address City/State/[facility] Co de Phone Number [address] [phone] * (ABNORMAL) CBC (09/20/2024 2:58 PM EDT) WBC 12.48(H) 4.00 - 11.00 K/uL [facility] RBC 4.27(L) 4.50 - 5.90 M/uL [facility] HGB 12.5(L) 13.5 - 17.5 g/dL [facility] HCT 37.4(L) 41.0 - 53.0 % [facility] PLT 367 150 - 450 K/uL [facility] MCV 87.6 80.0 - 100.0 fL [facility] MCH 29.3 27.0 - 31.0 pg [facility] MCHC 33.4 32.0 - 36.0 g/dL [facility] RDW 13.4 11.5 - 14.5 % [facility] MPV 9.1 8.4 - 12.0 [facility] NRBC 0.00 0.00 /100 WBCs [facility] ABSOLUTE NRBC 0.00 0.00 K/uL [facility] Blood 09/20/2024 2:58 PM EDT 09/20/2024 3:15 PM EDT Caron Cowart MACHINING ASSOCIATE LAB BLOOD BKR O RDERABLES Final Result [facility] [address] [place] [address] documented in this encounter Visit Diagnoses Diagnosis Normocytic anemia- Primary Unspecified anemia Other specified abdominal hernia without obstruction or gangrene documented in this encounter Care Teams Supervisor Pit And Auxiliaries Relationship Specialty Start Date End Date Imelda Mccauley NP [address] [place] [address] [address] [place] [address] [email or web address] PCP - General 04/27/17 Sherita Fernandez MBBS [address] [place] [address] [email or web address] Primary Oncologist Medical Oncology 05/01/24 documented as of this encounter Additional Source Comments The information contained in this document represents components of the legal health record. It is not the complete legal health record.[facility]
--- OUTSIDE RECORDS SUMMARY | 2025-04-22 16:06 | XMS_ITS | Encounter Summary ---
Author Organization [facility] Address [address] [place] [address] Phone Care Team Providers Care Pre Parole Counseling Aide Name Role Phone Imelda Mccauley NP Primary Care Provider [phone] Sherita Fernandez Unavailable [phone] Encounter Details Date Type Department Care Team (Late st Contact Info) Description 05/22/2024 Procedure [facility], Ct Scan - [address] [address] Social History Tobacco Use Types Packs/Day Years [...] high school, GED, job training, learning the [place] language, technical skills, or developing parenting skills)? [...] on filedocumented in this encounter Care Teams Pre Parole Counseling Aide Relationship Specialty Start Date End Date Imelda Mccauley NP [address] [place] [address] [email or web address] PCP - General 04/27/17 Sherita Fernandez MBBS [address] [place] [address] [email or web address] Primary Oncologist Medical Oncology 05/01/24 documented as of this encounter Additional Source Comments The information contained in this document represents components of the legal health record. It is not the complete legal health record.[facility]
--- OUTSIDE RECORDS SUMMARY | 2025-04-22 16:06 | XMS_ITS | Encounter Summary ---
Author Organization [facility] Address [address] [place] [address] [place] [id number] Phone Care Team Providers Care Count Team Member Name Role Phone Imelda Mccauley NP Primary Care Provider [phone] Sherita Fernandez Unavailable [phone] Reason for Referral * MRI/CAT Scan - Closed Specialty Diagnoses / Procedures Referred By Contac t Referred To Contact Radiology Diagnoses Abnormal colonoscopy Procedures CT Abdomen/Pelvis CHG CT SCAN,ABDOMENT AND PELVIS,W CONTRAST CHG CT SCAN,ABDOMENT AND PELVIS,W/O CONTRAST CHG CT SCAN,ABDOMENT AND PELVIS,COMBO Harrison Mitchell MD [address] [place] [id number] Phone: tel: fax: [email or web address] Referral ID Status Reason Start Date Expiration Date Visits Re quested Visits Authorized [id number] Closed 05/21/2024 07/19/2024 1 1 Encounter Details Date Type Department Care Team (Latest Contact Info) Description 05/22/2024 Transcribe Orders Virtual Department [address] [place] [address] Harrison Mitchell MD [address] [place] [phone] [email or web address] Status post colonoscopy (Primary Dx); Abnormal colonoscopy Social History Tobacco Use Types Packs/Day Years [...] high school, GED, job training, learning the [place] language, technical skills, or developing parenting skills)? [...] documented as of this encounter Results * CT ABDOMEN/PELVIS WITH CONTRAST (06/04/2024 4:42 PM EST) Anatomical Region Laterality Modality Abdomen, Pelvis Computed Tomogra phy 06/07/2024 11:2 6 AM EST Impressions 06/07/2024 11:42 AM EST 1. Small bowel intussusception involving the jejunum. No lead point mass is identified. No mechanical obstruction. 2. Extensive redundancy of the colon without focal abnormality. 3. Hepatic cyst. 4. Renal cortical cysts. 5. Fat-containing left inguinal hernia. Narrative 06/07/2024 11:[address] ABDOMEN/PELVIS WITH CONTRAST Referring clinician's provided indication for this examination in Epic: Outside Radiology Order; Fixed colon// External compression// Failed colonoscopy TECHNIQUE: Multidetector-row CT of the abdomen and pelvis was performed after administration of intravenous contrast using tailored dose modulation techniques. Images were reconstructed in the axial, coronal, and sagittal planes. COMPARISON: None. FINDINGS: DEVICES/TUBES/LINES: None. LUNG BASES: The heart size is normal without pericardial effusion. No coronary artery calcifications are present. Small probable hiatal hernia. Dependent areas of atelectasis are identified within both lungs. LIVER: Normal size liver with smooth surface contour. There is a hypodense probable cyst identified within the left hepatic lobe measuring 9 mm (image 59, series 3). No intrahepatic biliary ductal dilatation. BILIARY: Nondilated gallbladder. No calcifications, wall thickening or gross inflammation. No extrahepatic biliary ductal dilatation. PANCREAS: No duct dilatation, mass lesions or adjacent inflammation. SPLEEN: No splenomegaly or focal splenic lesions. RENAL: No calcifications, hydronephrosis, masses or perinephric collections. Multiple renal cysts. No ureteral dilation or focal lesion. ADRENAL: No nodules or thickening. MESENTERY/RETROPERITONEUM: No free fluid or free air. No masses. No retroperitoneal hematoma. NODES: No adenopathy. VASCULAR: The aorta is nonaneurysmal. Moderate vascular calcifications. BOWEL: No mechanical bowel obstruction is present. Small hiatal hernia is present. The stomach is under distended. No focal duodenal lipoma is identified. There is a intussusception identified within the jejunum (image 231, series 3). No lead point mass is present. The distal small bowel is nondilated. No gross inflammatory changes are present. There is extensive redundancy of the colon. Unremarkable appearance of the colon. No wall thickening, focal lesions or acute inflammation. The terminal ileum is normal. The appendix is normal. PELVIS: The urinary bladder is without wall thickening or luminal abnormality. The pelvic viscera are unremarkable. No free fluid. SOFT TISSUES: Fat-containing left inguinal hernia. No masses or collections. BONES: Minor degenerative changes, no suspicious lesions. Spinal curvature convexity to the left. Extensive femoral acetabular degenerative changes with subchondral lucencies on the left (image 304, series 3). Procedure Note Nine, Lai Chavira MD - 06/07/2024 CT ABDOMEN/PELVIS WITH CONTRAST Referring clinician's provided indication for this examination in Epic:Outside Radiology Order; Fixed colon// External compression// Failedcolonoscopy TECHNIQUE: Multidetector-row CT of the abdomen and pelvis was performedafter administration of intravenous contrast using tailored dosemodulation techniques. Images were reconstructed in the axial, coronal,and sagittal planes. COMPARISON: None. FINDINGS: DEVICES/TUBES/LINES: None. LUNG BASES: The heart size is normal without pericardial effusion. Nocoronary artery calcifications are present. Small probable hiatal hernia.Dependent areas of atelectasis are identified within both lungs. LIVER: Normal size liver with smooth surface contour. There is ahypodense probable cyst identified within the left hepatic lobe measuring9 mm (image 59, series 3). No intrahepatic biliary ductal dilatation. BILIARY: Nondilated gallbladder. No calcifications, wall thickening orgross inflammation. No extrahepatic biliary ductal dilatation. PANCREAS: No duct dilatation, mass lesions or adjacent inflammation. SPLEEN: No splenomegaly or focal splenic lesions. RENAL: No calcifications, hydronephrosis, masses or perinephriccollections. Multiple renal cysts. No ureteral dilation or focallesion. ADRENAL: No nodules or thickening. MESENTERY/RETROPERITONEUM: No free fluid or free air. No masses. Noretroperitoneal hematoma. NODES: No adenopathy. VASCULAR: The aorta is nonaneurysmal. Moderate vascular calcifications. BOWEL: No mechanical bowel obstruction is present. Small hiatal hernia ispresent. The stomach is under distended. No focal duodenal lipoma isidentified. There is a intussusception identified within the jejunum(image 231, series 3). No lead point mass is present. The distal smallbowel is nondilated. No gross inflammatory changes are present. There isextensive redundancy of the colon. Unremarkable appearance of the colon.No wall thickening, focal lesions or acute inflammation. The terminalileum is normal. The appendix is normal. PELVIS: The urinary bladder is without wall thickening or luminalabnormality. The pelvic viscera are unremarkable. No free fluid. SOFT TISSUES: Fat-containing left inguinal hernia. No masses orcollections. BONES: Minor degenerative changes, no suspicious lesions. Spinalcurvature convexity to the left. Extensive femoral acetabular degenerativechanges with subchondral lucencies on the left (image 304, series 3). IMPRESSION: 1. Small bowel intussusception involving the jejunum. No lead point massis identified. No mechanical obstruction. 2. Extensive redundancy of the colon without focal abnormality. 3. Hepatic cyst. 4. Renal cortical cysts. 5. Fat-containing left inguinal hernia. Harrison Mitchell MD IMG CT ABD/PELVIS Final Result documented in this encounter Visit Diagnoses Diagnosis Status post colonoscopy- Primary Other postprocedural status Abnormal colonoscopy Abnormal colonoscopy documented in this encounter Care Teams Count Team Member Relationship Specialty Start Date End Date Imelda Mccauley NP [address] [place] [address] [address] [place] [address] PCP - General 04/27/17 Sherita Fernandez MBBS [address] [place] [phone] [email or web address] Primary Oncologist Medical Oncology 05/01/24 documented as of this encounter Additional Source Comments The information contained in this document represents components of the legal health record. It is not the complete legal health record.[facility]
== END 2025-04-22 12:05 | disposition home or self-care (01) ==
LOC: HO.LAB 12:04
PROVIDERS: PCP Nurse Practitioner Adult Health; Visit Provider Student in an Organized Health Care Education/Training Program
DX: M11.20 Other chondrocalcinosis, unspecified site (principal)
CPT/HCPCS: 36415; 80053; 85025; 85652; 86140